=== PATIENT | female | born 1945 | race Caucasian/White ===

== ENCOUNTER 2016-08-17 08:16 | Emergency (ER) | payer OTHER, BC ==
[~2016-08-17] VITALS: Ht 157.5 cm; Wt 77.0 kg
[~2016-08-17 08:16] MED LIST: ALBUTEROL SULF8.5 GM IH; AMITRIPTYLINE H10 MG PO; CALTRATE 600 +1 EAC1 PO; CLINDAMYCIN HC300 MG PO; DITROPAN XL5 MG PO; FLUOXETINE HCL40 MG PO; LIPITOR10 MG PO; LIPITOR20 MG PO; MIRAPEX0.5 MG PO; OSCIMIN SR0.375 MG PO; PANTOPRAZOLE SO40 MG PO; PRAMIPEXOLE DI0.5 MG PO; PRAMIPEXOLE PO; PREDNISONE50 MG PO; PROAIR HFA8.5 GM IH; PROTONIX40 MG PO; PROZAC40 MG PO; SPIRIVA1 INHALATI IH; TOVIAZ4 MG PO; ULTRAM50 MG PO; VITAMIN D2000 UNIT PO; ZITHROMAX Z-PA250 MG PO
[2016-08-17 09:18] LABS: BASOPHIL COUNT 0.1 K/uL (0-0.1); EOSINOPHIL (%) 1.7 % (0-5); EOSINOPHIL COUNT 0.2 K/uL (0-0.3); HEMATOCRIT 44.7 % (36.0-46.0); IMMATURE GRANULOCYTE (%) 0.4 % (0.0-0.7); INSTRUMENT ABS NEUTROPHIL CT 6.9 K/uL; MCH 30.8 PG (29.0-34.0); MCHC 32.2 G/DL (30.0-36.0); MCV 95.7 FL (83-99); MEAN PLAT.VOLUME 9.3 uM^3 (9.5-12.4); MONOCYTE (%) 7.4 % (3-12); MONOCYTE COUNT 0.7 K/uL (0-0.8); NEUTROPHIL (%) 69.5 % (45-76); NEUTROPHIL COUNT 6.9 K/uL (1.8-6.4); PLATELET COUNT 242 K/uL (156-360); RBC DIS.WIDTH-CV 12.9 % (11.8-14.6); RBC DIS.WIDTH-SD 46.2 % (39-53); RED BLOOD COUNT 4.67 M/uL (3.80-5.20); WHITE BLOOD COUNT 9.9 K/uL (4.1-10.2)
[2016-08-17 09:30] LABS: CHLORIDE 103 mEq/L (99-109); POTASSIUM 4.8 mEq/L (3.7-5.4); SODIUM 139 mEq/L (136-147)
[2016-08-17 09:32] LABS: GLUCOSE 103 mg/dL (70-99)
[2016-08-17 09:34] LABS: ANION GAP 10 MEQ/L (2-14)
[2016-08-17 09:36] LABS: GFR ESTIMATE (CALCULATED) > 59 mL/min/
[2016-08-17 09:37] LABS: UREA NITROGEN (BUN) 14 mg/dL (9-23)
[2016-08-17 11:41] LABS: APPEARANCE CLEAR/COLORLESS; CSF EOSINOPHILS 0 % (0-25); MONO RAW COUNT 2; MONONUCLEAR WBC'S 100 % (50-90); POLYNUCLEAR WBC'S 0 % (0-3); RED CELL AREA COUNTED 18; RED CELL COUNT 0 /MM^3 (0-1); RED CELL DILUTION 1; WBC AREA COUNTED 18; WBC DILUTION 1; WHITE CELL COUNT 1 /MM^3 (0-5); WHITE CELL RAW COUNT 2
[2016-08-17] MEDS ORDERED: FIORICET WI1 CAPSULE PO (12:01)
[2016-08-17 13:04] VITALS: BP 139/66
== END 2016-08-17 13:05 | disposition home or self-care (01) ==
LOC: EME 08:16
PROVIDERS: Emergency Medicine
PROC: 009U3ZX Drainage of Spinal Canal, Percutaneous Approach, Diagnostic (ICD-10-PCS; principal; 2016-08-17)
DX: R51 Headache (principal); J44.9 Chronic obstructive pulmonary disease, unspecified; K21.9 Gastro-esophageal reflux disease without esophagitis; F17.200 Nicotine dependence, unspecified, uncomplicated; Z96.641 Presence of right artificial hip joint
CPT/HCPCS: 70450; 80048; 82945; 84157; 85025; 87070; 87205; 89051; 99281; 99284; J2270; J2765